=== PATIENT | male | born 1950 | race Caucasian/White ===

== ENCOUNTER 2024-08-05 13:35 | Inpatient (IN) | payer MEDICAID ==
[~2024-08-05] VITALS: Ht 154.9 cm; Wt 64.7 kg
[~2024-08-05 13:35] MED LIST: ASPI-1406 PO; CLOP-31 PO; EMPA10TA PO; LEVO25TA7 MT; LIP40 PO; LISI-186 MT; MECL-299 PO; METF-1150 MT; MULT-1146 MT; VITA250012 PO
[2024-08-05 14:39] LABS: BASOPHILS % 0.6 % (0.0-2.0); EOSINOPHILS % 1.8 % (0.0-5.0); HEMATOCRIT. 39.7 % (42.0-52.0); HEMOGLOBIN. 13.2 g/dL (14.0-18.0); LYMPHOCYTES % 18.1 % (20.0-50.0); MEAN CORPUSCULAR HEMOGLOBIN 30.1 pg (28.0-32.0); MEAN CORPUSCULAR HGB CONC 33.1 g/dL (31.0-37.0); MEAN CORPUSCULAR VOLUME 90.8 fL (80.0-94.0); MEAN PLATELET VOLUME 9.2 fl (7.4-10.4); MONOCYTES % 6.3 % (2.0-8.0); NEUTROPHILS % 73.2 % (40.0-76.0); PLATELET 216 x1000/uL (130-400); RED BLOOD CELL COUNT 4.37 mill/uL (4.7-6.1); RED CELL DISTRIBUTION WIDTH 14.4 % (11.6-14.6); WHITE BLOOD COUNT 9.5 x1000/uL (4.5-11.0)
[2024-08-05 14:49] LABS: CHLORIDE 102 mEq/L (98-107); POTASSIUM 4.1 mEq/L (3.5-5.1); SODIUM 136 mEq/L (136-145)
[2024-08-05 14:50] LABS: CARBON DIOXIDE 26 mEq/L (21-32)
[2024-08-05 14:51] LABS: PROTHROMBIN TIME 10.6 sec (9.6-11.0)
[2024-08-05 14:55] LABS: CREATININE 1.1 mg/dL (0.6-1.3); GLUCOSE 245 mg/dL (70-105); UREA NITROGEN BLOOD 28 mg/dL (9-23)
[2024-08-05 14:56] LABS: TROPONIN I HIGH SENSITIVITY 7 ng/L (3.0-53)
[2024-08-05] MEDS ORDERED: ONDANSETRON HCL 4MG/2ML INJ IV PRN (17:30)
[2024-08-05] MEDS ORDERED: HYDRALAZINE 20MG/ML VIAL IV PRN (17:30)
[2024-08-05] MEDS ORDERED: DEXTROSE 50% WATER 50ML SYRINGE IV PRN (17:30)
[2024-08-05] MEDS ORDERED: ZOLPIDEM TARTRATE 5MG TABLET PO PRN (17:30)
[2024-08-05] MEDS ORDERED: HYDROCODONE/ACETAMINOPHEN 5/325MG TABLET PO PRN (17:30)
[2024-08-05] MEDS ORDERED: IPRATROPIUM/ALBUTEROL 0.5-3(2.5)MG/3ML NEB NEB PRN (17:30)
[2024-08-05] MEDS ORDERED: CLONIDINE 0.1MG TABLET PO PRN (17:30)
[2024-08-05 18:13] VITALS: BP 115/90; PULSE 74; RESP 14; TEMP 36.8
[2024-08-05] MEDS: ACETAMINOPHEN 325MG TABLET PO PRN (18:48)
[2024-08-05] MEDS: CLOPIDOGREL 75MG TABLET PO SCH (19:05)
[2024-08-05] MEDS: EMPAGLIFLOZIN 10MG TABLET PO SCH (19:05)
[2024-08-05] MEDS: INSULIN LISPRO 100 UNITS/ML SUBCUT SCH (19:06)
[2024-08-05] MEDS: SODIUM CHLORIDE 0.9% 1,000 ML IV SCH (19:07)
[2024-08-05 20:00] VITALS: BP 111/61; PULSE 66; RESP 12; TEMP 36.4; O2SAT 98
[2024-08-05] MEDS: BLOOD SUGAR DIAGNOSTIC STRIP TEST SCH (20:56)
[2024-08-05] MEDS: ENOXAPARIN 40MG/0.4ML SYR SUBCUT SCH (20:58)
[2024-08-05] MEDS: ATORVASTATIN CALCIUM 40MG TABLET PO SCH (20:58)
[2024-08-05 22:54] LABS: CLARITY URINE CLEAR (CLEAR); COLOR URINE YELLOW (YELLOW); GLUCOSE URINE 3+ (NEGATIVE); KETONES URINE NEGATIVE (NEGATIVE); LEUKOCYTE ESTERASE URINE NEGATIVE (NEGATIVE); NITRITE URINE NEGATIVE (NEGATIVE); OCCULT BLOOD URINE NEGATIVE (NEGATIVE); PH URINE 6.5 (4.5-8.0); PROTEIN URINE NEGATIVE (NEGATIVE); SPECIFIC GRAVITY URINE 1.019 (1.005-1.030); UROBILINOGEN URINE 0.2 E.U./dL (0.2-1.0)
[2024-08-05 23:07] LABS: BACTERIA URINE NONE SEEN; RBC URINE NONE SEEN /hpf (0-2); SQUAMOUS EPITHELIAL CELL URINE RARE /lpf (RARE/1+); WBC URINE NONE SEEN /hpf (0-2)
[2024-08-05 23:09] LABS: *AMPHETAMINES SCREEN URINE NEGATIVE (NEGATIVE); *BARBITURATES SCREEN URINE NEGATIVE (NEGATIVE); *BENZODIAZEPINES SCREEN URINE NEGATIVE (NEGATIVE); *COCAINE SCREEN URINE NEGATIVE (NEGATIVE); METHADONE URINE SCREEN NEGATIVE (NEGATIVE)
[2024-08-05 23:10] LABS: CANNABINOID URINE SCREEN NEGATIVE (NEGATIVE); ECSTASY MDMA SCREEN URINE NEGATIVE (NEGATIVE); OPIATES URINE SCREEN NEGATIVE (NEGATIVE); PHENCYCLIDINE URINE SCREEN NEGATIVE (NEGATIVE)
[2024-08-06] VITALS: BP 102/59; PULSE 55; RESP 10; TEMP 36.6; O2SAT 97
[2024-08-06 00:34] LABS: TROPONIN I HIGH SENSITIVITY 6 ng/L (3.0-53)
[2024-08-06 04:00] VITALS: BP 116/64; PULSE 53; RESP 14; TEMP 36.8; O2SAT 99
[2024-08-06] MEDS: LEVOTHYROXINE SODIUM 25MCG TABLET PO SCH (06:28)
[2024-08-06 08:00] VITALS: BP 130/68; PULSE 82; RESP 20; TEMP 36.5; O2SAT 100
[2024-08-06 08:09] LABS: BASOPHILS % 0.7 % (0.0-2.0); EOSINOPHILS % 2.7 % (0.0-5.0); HEMATOCRIT. 37.1 % (42.0-52.0); HEMOGLOBIN. 12.4 g/dL (14.0-18.0); LYMPHOCYTES % 24.8 % (20.0-50.0); MEAN CORPUSCULAR HEMOGLOBIN 30.1 pg (28.0-32.0); MEAN CORPUSCULAR HGB CONC 33.3 g/dL (31.0-37.0); MEAN CORPUSCULAR VOLUME 90.3 fL (80.0-94.0); MEAN PLATELET VOLUME 9.2 fl (7.4-10.4); MONOCYTES % 8.2 % (2.0-8.0); NEUTROPHILS % 63.6 % (40.0-76.0); PLATELET 220 x1000/uL (130-400); RED BLOOD CELL COUNT 4.11 mill/uL (4.7-6.1); RED CELL DISTRIBUTION WIDTH 14.2 % (11.6-14.6); WHITE BLOOD COUNT 7.4 x1000/uL (4.5-11.0)
[2024-08-06 08:55] LABS: CALCIUM 9.4 mg/dL (8.7-10.4); CARBON DIOXIDE 27 mEq/L (21-32); CHLORIDE 106 mEq/L (98-107); POTASSIUM 4.6 mEq/L (3.5-5.1); SODIUM 141 mEq/L (136-145)
[2024-08-06 09:00] LABS: TROPONIN I HIGH SENSITIVITY 6 ng/L (3.0-53)
[2024-08-06 09:01] LABS: GLUCOSE 110 mg/dL (70-105); UREA NITROGEN BLOOD 21 mg/dL (9-23)
[2024-08-06] MEDS: LISINOPRIL 5MG TABLET PO SCH (09:49)
[2024-08-06] MEDS: PANTOPRAZOLE SODIUM 40 MG/VIAL IV SCH (09:49)
[2024-08-06] MEDS: ASPIRIN 81MG EC TABLET PO SCH (09:49)
[2024-08-06] MEDS ORDERED: METOPROLOL TARTRATE 5MG/5ML VIAL IV PRN (10:15)
[2024-08-06] MEDS ORDERED: NALOXONE HCL 0.4MG/ML VIAL IV PRN (10:30)
[2024-08-06 12:00] VITALS: BP 114/68; PULSE 71; RESP 20; TEMP 36.7; O2SAT 97
[2024-08-06 16:00] VITALS: BP 119/67; PULSE 62; RESP 18; TEMP 36.9; O2SAT 100
[2024-08-06 20:00] VITALS: PULSE 66; RESP 16; TEMP 36.6; O2SAT 97
[2024-08-07] VITALS: BP 109/57; PULSE 54; RESP 14; TEMP 36.4; O2SAT 99
[2024-08-07 04:00] VITALS: BP 108/60; PULSE 55; RESP 10; TEMP 36.6; O2SAT 97
[2024-08-07 06:43] LABS: BASOPHILS % 0.8 % (0.0-2.0); EOSINOPHILS % 2.9 % (0.0-5.0); HEMATOCRIT. 37.3 % (42.0-52.0); HEMOGLOBIN. 12.4 g/dL (14.0-18.0); LYMPHOCYTES % 21.7 % (20.0-50.0); MEAN CORPUSCULAR HEMOGLOBIN 29.8 pg (28.0-32.0); MEAN CORPUSCULAR HGB CONC 33.3 g/dL (31.0-37.0); MEAN CORPUSCULAR VOLUME 89.7 fL (80.0-94.0); MEAN PLATELET VOLUME 8.8 fl (7.4-10.4); MONOCYTES % 7.5 % (2.0-8.0); NEUTROPHILS % 67.1 % (40.0-76.0); PLATELET 209 x1000/uL (130-400); RED BLOOD CELL COUNT 4.15 mill/uL (4.7-6.1); RED CELL DISTRIBUTION WIDTH 14.3 % (11.6-14.6); WHITE BLOOD COUNT 7.8 x1000/uL (4.5-11.0)
[2024-08-07] MEDS: ENOXAPARIN 80MG/0.8ML SYR SUBCUT SCH (06:57)
[2024-08-07 07:14] LABS: CARBON DIOXIDE 23 mEq/L (21-32); CHLORIDE 107 mEq/L (98-107); POTASSIUM 3.8 mEq/L (3.5-5.1); SODIUM 140 mEq/L (136-145)
[2024-08-07 07:15] LABS: CALCIUM 8.6 mg/dL (8.7-10.4)
[2024-08-07 07:20] LABS: GLUCOSE 103 mg/dL (70-105); UREA NITROGEN BLOOD 15 mg/dL (9-23)
[2024-08-07 08:00] VITALS: BP 134/79; PULSE 72; RESP 12; TEMP 37; O2SAT 99
[2024-08-07] MEDS ORDERED: IOHEXOL-350 100 ML BOTTLE ONE (08:35)
[2024-08-07 12:00] VITALS: BP 113/58; PULSE 63; RESP 13; TEMP 37; O2SAT 98
[2024-08-07 16:00] VITALS: BP 107/60; PULSE 63; RESP 14; TEMP 37; O2SAT 99
[2024-08-07 20:00] VITALS: BP 116/61; PULSE 70; RESP 14; TEMP 36.8; O2SAT 99
[2024-08-08] VITALS: BP 116/51; PULSE 72; RESP 18; TEMP 36.9; O2SAT 98
[2024-08-08 04:00] VITALS: BP 129/81; PULSE 55; RESP 14; TEMP 36.8; O2SAT 98
[2024-08-08 06:54] LABS: CARBON DIOXIDE 24 mEq/L (21-32); CHLORIDE 109 mEq/L (98-107); POTASSIUM 3.8 mEq/L (3.5-5.1); SODIUM 140 mEq/L (136-145)
[2024-08-08 06:55] LABS: CALCIUM 8.5 mg/dL (8.7-10.4)
[2024-08-08 06:59] LABS: CREATININE 0.9 mg/dL (0.6-1.3)
[2024-08-08 07:00] LABS: GLUCOSE 98 mg/dL (70-105); UREA NITROGEN BLOOD 13 mg/dL (9-23)
[2024-08-08 07:04] LABS: EOSINOPHILS % 3.1 % (0.0-5.0); HEMOGLOBIN. 12.6 g/dL (14.0-18.0); LYMPHOCYTES % 23.3 % (20.0-50.0); MEAN CORPUSCULAR HEMOGLOBIN 29.3 pg (28.0-32.0); MEAN CORPUSCULAR HGB CONC 32.2 g/dL (31.0-37.0); MEAN CORPUSCULAR VOLUME 90.9 fL (80.0-94.0); MEAN PLATELET VOLUME 9.1 fl (7.4-10.4); MONOCYTES % 9.1 % (2.0-8.0); NEUTROPHILS % 63.5 % (40.0-76.0); PLATELET 214 x1000/uL (130-400); RED BLOOD CELL COUNT 4.29 mill/uL (4.7-6.1); RED CELL DISTRIBUTION WIDTH 14.4 % (11.6-14.6); WHITE BLOOD COUNT 7.6 x1000/uL (4.5-11.0)
[2024-08-08 08:00] VITALS: BP 128/63; PULSE 53; RESP 12; TEMP 36.7; O2SAT 98
[2024-08-08 12:00] VITALS: BP 112/69; PULSE 58; RESP 13; TEMP 36.7; O2SAT 97
[2024-08-08 16:00] VITALS: BP 113/69; PULSE 68; RESP 15; TEMP 37.3; O2SAT 98
[2024-08-08 20:00] VITALS: BP 114/66; PULSE 62; RESP 13; TEMP 36.8; O2SAT 97
[2024-08-09] VITALS: BP 114/47; PULSE 53; RESP 14; TEMP 36.9; O2SAT 98
[2024-08-09 04:00] VITALS: BP 108/54; PULSE 64; RESP 15; TEMP 37; O2SAT 94
[2024-08-09] MEDS: PANTOPRAZOLE 40MG DR TABLET PO SCH (06:28)
[2024-08-09 08:00] VITALS: BP 144/59; PULSE 58; RESP 14; TEMP 37.1; O2SAT 96
[2024-08-09] MEDS: NITROGLYCERIN SPRAY/4.9GM CAN TL ONE (10:25)
[2024-08-09 12:11] VITALS: BP 119/69; PULSE 72; RESP 19; TEMP 36.9; O2SAT 98
[2024-08-09 16:00] VITALS: BP 118/66; PULSE 64; RESP 12; TEMP 36.8; O2SAT 97
[2024-08-09 17:19] VITALS: BP 134/93; PULSE 78; TEMP 98.5; O2SAT 98
[2024-08-10] MEDS ORDERED: APIX5TAB MT (16:04)
== END 2024-08-09 19:11 | disposition home or self-care (01) | DRG 243 ==
LOC: ER 13:35 → EDBEDREQTM 16:10 → EDBEDREQ 16:10 → 3WST 17:28
PROVIDERS: ADMIT Internal Medicine; ATTEND Internal Medicine
DX: K21.9 Gastro-esophageal reflux disease without esophagitis (principal); D64.9 Anemia, unspecified; E03.9 Hypothyroidism, unspecified; E11.9 Type 2 diabetes mellitus without complications; E78.00 Pure hypercholesterolemia, unspecified; I10 Essential (primary) hypertension; I34.0 Nonrheumatic mitral (valve) insufficiency; Z85.46 Personal history of malignant neoplasm of prostate; Z86.73 Personal history of transient ischemic attack (TIA), and cerebral infarction without residual deficits
CPT/HCPCS: 36415; 71045; 71275; 75571; 80048; 80305; 81003; 82962; 83036; 84484; 85025; 93005; 93306; 93880; 99285; J1650; J1815; J2470; Q9967

== ENCOUNTER 2024-08-16 19:42 | Emergency (ER) | payer MEDICAID ==
[~2024-08-16] VITALS: Ht 154.9 cm; Wt 69.4 kg
[~2024-08-16 19:42] MED LIST changes: +APIX5TAB MT
[2024-08-16 19:47] VITALS: O2SAT 98
[2024-08-16] MEDS: DEXAMETHASONE 10 MG/ML VIAL IM ONE (21:03)
[2024-08-16] MEDS: HYDROCODONE/ACETAMINOPHEN 5/325MG TABLET PO ONE (21:03)
[2024-08-16] MEDS ORDERED: ACET-2708 MT (22:38)
[2024-08-16 22:47] VITALS: BP 135/72; PULSE 77; RESP 16; TEMP 36.6; O2SAT 99
== END 2024-08-16 22:48 | disposition home or self-care (01) ==
LOC: ER 19:42
DX: M54.50 Low back pain, unspecified (principal); E78.00 Pure hypercholesterolemia, unspecified; Z79.84 Long term (current) use of oral hypoglycemic drugs; Z79.82 Long term (current) use of aspirin; Z79.52 Long term (current) use of systemic steroids; Z86.73 Personal history of transient ischemic attack (TIA), and cerebral infarction without residual deficits; Z79.899 Other long term (current) drug therapy; Z79.890 Hormone replacement therapy; Z79.02 Long term (current) use of antithrombotics/antiplatelets; Z79.01 Long term (current) use of anticoagulants
CPT/HCPCS: 99283; 96372; J1100